=== PATIENT | male | born 1960 | race African-American/Black ===

== ENCOUNTER 2019-06-29 17:28 | Outpatient (CLI) | payer OTHER | END 2019-06-29 17:55 | disposition short-term general hospital (02) | LOC: AMBL 17:28 | PROVIDERS: ATTEND Emergency Medicine | DX: M54.2 Cervicalgia (principal); S29.9XXA Unspecified injury of thorax, initial encounter; V59.40XA Driver of pick-up truck or van injured in collision with unspecified motor vehicles in traffic accident, initial encounter ==